=== PATIENT | female | born 1990 | race Caucasian/White ===

== ENCOUNTER 2016-10-14 14:25 | Emergency (ER) | payer MEDICAID ==
--- NOTE | 2016-10-14 14:45 | NUR ---
Pt was brought to bed 3 with complaints of sore throat and diffculty swallowing for the past 3 days, pt denies fever, n/v or diarrhea. No other injuries/complaints per pt or noted
--- NOTE | 2016-10-14 14:58 | NUR ---
ER at bedside examining patient.
--- NOTE | 2016-10-14 15:30 | NUR ---
Pt is resting comfortably in bed with no noted distress or discomfort.
[2016-10-14] MEDS ORDERED: cefTRIAXone 1 GM VIAL IM ONE (15:45)
[2016-10-14] MEDS ORDERED: DEXAMETHASONE SOD PHOSPHATE 10 MG/ML VIAL IM ONE (15:45)
[2016-10-14] MEDS ORDERED: LIDOCAINE 1%, 20 ML MDV 20 ML ONE (15:49)
[2016-10-14 16:15] VITALS: BP_SYST 128
--- NOTE | 2016-10-14 16:15 | NUR ---
Patient given written and verbal discharge instructions and verbalizes understanding. ER MD discussed with patient the results and treatment provided. Patient in stable condition. ID arm band removed. Rx of Prelone, Hydrocodone, Penicillin given. Patient educated on pain management and to follow up with PMD. Pain Scale 3. Dr. Lynn is aware, medications were given here and prescription for home. Opportunity for questions provided and answered.
== END 2016-10-14 16:15 | disposition home or self-care (01) ==
LOC: SED 14:25
DX: J36 Peritonsillar abscess (principal); R03.0 Elevated blood-pressure reading, without diagnosis of hypertension
CPT/HCPCS: 96372; 99284; J0696; J1100; J2001